=== PATIENT | female | born 1960 | race Two or more races ===

== ENCOUNTER 2019-02-27 17:29 | Inpatient (IN) | payer OTHER ==
[~2019-02-27] VITALS: Ht 160 cm; Wt 113.7 kg
[2019-02-27] MEDS ORDERED: VECURONIUM BROMIDE 10 MG/VIAL IV ONE (17:32)
[2019-02-27] MEDS ORDERED: ETOMIDATE 2 MG/ML 10 ML VIAL IVP ONE ×2 (17:32→17:45)
[2019-02-27] MEDS ORDERED: PROPOFOL 1000 MG/ISO-OSM 100 ML IV PRN (17:34)
[2019-02-27] MEDS ORDERED: VECURONIUM BROMIDE 10 MG/VIAL IVP ONE (17:45)
[2019-02-27 17:51] LABS: HEMATOCRIT 27.3 % (36-46); HEMOGLOBIN 9.1 g/dL (12.0-16.0); MEAN CORPUSCULAR HEMOGLOBIN 32.2 pg (26.0-34.0); MEAN CORPUSCULAR HGB CONC 33.3 G/dL (31.0-37.0); MEAN CORPUSCULAR VOLUME 97 fL (80-100); PLATELET COUNT (AUTO) 265 K/uL (150-450); RED BLOOD CELL COUNT(AUTO) 2.83 MIL/uL (4.00-5.20); RED CELL DISTRIBUTION WIDTH 16.6 % (11.5-14.5)
[2019-02-27 17:58] LABS: CALCIUM, TOTAL 8.3 mg/dL (8.8-10.5); CREATININE 4.01 mg/dL (0.60-1.30); POTASSIUM 3.5 mmol/L (3.5-5.1)
[2019-02-27 18:03] LABS: INR 1.2 (0.9-1.1); PROTHROMBIN TIME 11.7 SEC (9.4-11.6)
[2019-02-27 18:04] LABS: ALBUMIN 2.8 g/dL (3.4-5.0); BILIRUBIN,TOTAL 1.2 mg/dL (0.1-1.0); TOTAL PROTEIN, SERUM 8.7 g/dL (6.4-8.2)
[2019-02-27] MEDS ORDERED: ASPI-556 PO (18:07)
[2019-02-27] MEDS ORDERED: METO25XL PO (18:07)
[2019-02-27] MEDS ORDERED: HYDR-2924 PO (18:07)
[2019-02-27] MEDS ORDERED: FURO80 PO (18:07)
[2019-02-27] MEDS ORDERED: INSU100I26 SQ (18:07)
[2019-02-27] MEDS ORDERED: NIFE-39 PO (18:07)
[2019-02-27] MEDS ORDERED: FERR210T PO (18:07)
[2019-02-27 18:37] LABS: BAND NEUTROPHILS % (MANUAL) 33 % (0-5); LYMPHOCYTES % (MANUAL) 6 % (22-44); MONOCYTES % (MANUAL) 2 % (2-9); SEGMENTED NEUTROPHILS % 59 % (40-70)
[2019-02-27 18:44] LABS: ABG A-A DIFF O2 398.8 mmHg (10-20.0); ABG BASE EXCESS 0.7 mmol/L (-2.0-3.0); ABG CARBOXYHEMOGLOBIN 0.3 % (0.0-1.5); ABG HCO3 24.5 mmol/L (22.0-26.0); ABG METHEMOGLOBIN 0.2 % (0.0-1.5); ABG OXYGEN CONTENT 13.7 mL/dL (15.0-23.0); ABG OXYGEN SATURATION 99.3 % (95.0-98.0); ABG OXYHEMOGLOBIN 98.8 % (94.0-100.0); ABG PCO2 66 mmHg (35-45); ABG PH 7.248 (7.35-7.450); ABG TOTAL HEMOGLOBIN 9.4 G/dL (12.0-18.0); O2 DEVICE,BLOOD GAS VENTILATOR (ROOM AIR); PO2, ARTERIAL BG 248.7 mmHg (84.0-92.0); SITE, BLOOD GAS RT RADIAL; SOURCE, BLOOD GAS ARTERIAL; TEMPERATURE, FAHRENHEIT, BG 98.6 FAHREN (96.0-98.6); VT, ABG 500 ml
[2019-02-27 18:45] LABS: PEEP,BG 5 cm H2O
[2019-02-27] MEDS ORDERED: ONDANSETRON HCL 4 MG/2 ML VIAL IVP PRN (20:30)
[2019-02-27] MEDS ORDERED: ACETAMINOPHEN 325 MG TABLET PO PRN (20:30)
[2019-02-27] MEDS ORDERED: SODIUM CHLORIDE 0.9% 250 ML IV ONE (21:19)
[2019-02-27] MEDS ORDERED: FentaNYL CITRATE PF 500 MCG in DEXTROSE 5%-WATER 90 ML IV PRN (21:45)
[2019-02-27] MEDS ORDERED: KETOROLAC TROMETHAMINE 30 MG/ML VIAL IVP ONE (22:45)
[2019-02-27 23:15] LABS: GLUCOSE,POINT OF CARE 215 MG/DL (70-110)
[2019-02-27] MEDS ORDERED: HALOPERIDOL LACTATE 5 MG/ML VIAL IVP ONE (23:15)
[2019-02-27] MEDS ORDERED: NOREPINEPHRINE 4 MG/D5%-WATER 250 ML IV PRN (23:48)
[2019-02-28] MEDS ORDERED: NOREPINEPHRINE 4 MG/D5%-WATER 250 ML IV PRN
[2019-02-28] MEDS ORDERED: HALOPERIDOL LACTATE 5 MG/ML VIAL IVP ONE (00:45)
[2019-02-28] MEDS ORDERED: SODIUM CHLORIDE 0.9% 100 ML ONE (01:23)
[2019-02-28] MEDS ORDERED: IOVERSOL 320 MG/ML 100 ML VIAL ONE (01:23)
[2019-02-28] MEDS ORDERED: 0.9% SODIUM CHLORIDE 10 ML SYRINGE IVP PRN (02:15)
[2019-02-28] MEDS ORDERED: ACETAMINOPHEN 325 MG TABLET PO PRN (02:15)
[2019-02-28] MEDS ORDERED: ONDANSETRON HCL 4 MG/2 ML VIAL IVP PRN (02:15)
[2019-02-28] MEDS ORDERED: MAGNESIUM HYDROXIDE SUSPENSION 30 ML UDCUP PO PRN (02:15)
[2019-02-28 08:18] LABS: GLUCOSE,POINT OF CARE 207 MG/DL (70-110)
[2019-02-28] MEDS: DOCUSATE SODIUM 100 MG CAPSULE PO SCH ×2 (09:08→20:53)
[2019-02-28 11:54] LABS: GLUCOSE,POINT OF CARE 175 MG/DL (70-110)
[2019-02-28 16:00] VITALS: BP 156/77
[2019-02-28] MEDS: SEVELAMER CARBONATE 800 MG TABLET PO SCH (18:23)
[2019-02-28 19:45] VITALS: BP 155/71
[2019-02-28 20:01] LABS: GLUCOMETER DEV NAME(LOC) 5N.1; GLUCOSE,POINT OF CARE 262 MG/DL (70-110)
[2019-03-01 00:19] VITALS: BP 150/73
[2019-03-01 02:21] LABS: GLUCOMETER DEV NAME(LOC) 5N.1; GLUCOSE,POINT OF CARE 181 MG/DL (70-110)
[2019-03-01 04:43] VITALS: BP 127/43
[2019-03-01 06:49] LABS: GLUCOMETER DEV NAME(LOC) 5N.1; GLUCOSE,POINT OF CARE 168 MG/DL (70-110)
[2019-03-01 07:20] VITALS: BP 118/46
[2019-03-01 07:39] LABS: CALCIUM, TOTAL 8.5 mg/dL (8.8-10.5); CREATININE 3.31 mg/dL (0.60-1.30); PHOSPHORUS 4.3 mg/dL (2.5-4.9); POTASSIUM 3.8 mmol/L (3.5-5.1)
[2019-03-01 07:57] LABS: BASOPHILS % (AUTO) 2.1 % (0.0-2.0); EOSINOPHILS % (AUTO) 4.1 % (1.0-6.0); HEMATOCRIT 22.1 % (36-46); HEMOGLOBIN 7.4 g/dL (12.0-16.0); LYMPHOCYTES # (AUTO) 0.6 K/uL (1.0-4.8); LYMPHOCYTES % (AUTO) 5.7 % (22.0-44.0); MEAN CORPUSCULAR HEMOGLOBIN 32.2 pg (26.0-34.0); MEAN CORPUSCULAR HGB CONC 33.7 G/dL (31.0-37.0); MEAN CORPUSCULAR VOLUME 96 fL (80-100); MONOCYTES % (AUTO) 10.2 % (2.0-9.0); NEUTROPHILS # (AUTO) 7.9 K/uL (1.8-7.7); NEUTROPHILS % (AUTO) 77.9 % (40.0-70.0); PLATELET COUNT (AUTO) 249 K/uL (150-450); RED BLOOD CELL COUNT(AUTO) 2.31 MIL/uL (4.00-5.20); RED CELL DISTRIBUTION WIDTH 16.4 % (11.5-14.5)
[2019-03-01] MEDS: SEVELAMER CARBONATE 800 MG TABLET PO SCH ×3 (08:03→18:59)
[2019-03-01] MEDS: DOCUSATE SODIUM 100 MG CAPSULE PO SCH ×2 (08:03→20:30)
[2019-03-01] MEDS ORDERED: EPOETIN ALFA 10,000 UNITS/ML VIAL SQ SCH (09:00)
[2019-03-01] MEDS ORDERED: [UNRECOGNIZED DRUG - REMARK] MISC SCH (09:00)
[2019-03-01 11:05] VITALS: BP 149/61
[2019-03-01] MEDS ORDERED: SODIUM CHLORIDE 0.9% 250 ML IV ONE (13:49)
[2019-03-01] MEDS: SOD FERRIC GLUC COMPLX/SUCROSE 125 MG in SODIUM CHLORIDE 0.9% 100 ML IV SCH (13:51)
[2019-03-01 15:11] VITALS: BP 150/62
[2019-03-01] MEDS ORDERED: GLIM4 PO (18:58)
[2019-03-01 19:09] LABS: GLUCOMETER DEV NAME(LOC) 5N.1; GLUCOSE,POINT OF CARE 154 MG/DL (70-110)
[2019-03-01 19:09] LABS: GLUCOMETER DEV NAME(LOC) 5N.1; GLUCOSE,POINT OF CARE 169 MG/DL (70-110)
[2019-03-01 19:09] LABS: GLUCOMETER DEV NAME(LOC) 5N.1; GLUCOSE,POINT OF CARE 248 MG/DL (70-110)
[2019-03-01 20:05] VITALS: BP 141/61
[2019-03-01] MEDS: CeFAZolin 1 GM/DEXTROSE 50 ML IV PRN (20:15)
[2019-03-01 20:35] LABS: GLUCOMETER DEV NAME(LOC) 5N.1; GLUCOSE,POINT OF CARE 238 MG/DL (70-110)
[2019-03-02 00:11] VITALS: BP 158/73
[2019-03-02 04:25] VITALS: BP 134/53
[2019-03-02 06:57] LABS: BASOPHILS % (AUTO) 0.7 % (0.0-2.0); EOSINOPHILS % (AUTO) 3.2 % (1.0-6.0); HEMATOCRIT 21.9 % (36-46); HEMOGLOBIN 7.3 g/dL (12.0-16.0); LYMPHOCYTES # (AUTO) 0.5 K/uL (1.0-4.8); LYMPHOCYTES % (AUTO) 5.2 % (22.0-44.0); MEAN CORPUSCULAR HEMOGLOBIN 32.3 pg (26.0-34.0); MEAN CORPUSCULAR HGB CONC 33.4 G/dL (31.0-37.0); MEAN CORPUSCULAR VOLUME 97 fL (80-100); MONOCYTES # (AUTO) 1.1 K/uL (0.1-1.0); MONOCYTES % (AUTO) 11.7 % (2.0-9.0); NEUTROPHILS # (AUTO) 7.7 K/uL (1.8-7.7); NEUTROPHILS % (AUTO) 79.2 % (40.0-70.0); PLATELET COUNT (AUTO) 285 K/uL (150-450); RED BLOOD CELL COUNT(AUTO) 2.27 MIL/uL (4.00-5.20); RED CELL DISTRIBUTION WIDTH 16.1 % (11.5-14.5)
[2019-03-02 07:24] LABS: CALCIUM, TOTAL 8.6 mg/dL (8.8-10.5); CREATININE 3.06 mg/dL (0.60-1.30); FREE T4 (FREE THYROXINE) 1.01 ng/dL (0.76-1.46); POTASSIUM 3.5 mmol/L (3.5-5.1); THYROID STIMULATING HORMONE 13.09 uIU/mL (0.36-3.74)
[2019-03-02 07:55] VITALS: BP 159/66
[2019-03-02] MEDS: SEVELAMER CARBONATE 800 MG TABLET PO SCH ×3 (08:44→17:43)
[2019-03-02] MEDS: DOCUSATE SODIUM 100 MG CAPSULE PO SCH ×2 (08:44→21:00)
[2019-03-02] MEDS: SOD FERRIC GLUC COMPLX/SUCROSE 125 MG in SODIUM CHLORIDE 0.9% 100 ML IV SCH (10:58)
[2019-03-02 12:34] LABS: GLUCOMETER DEV NAME(LOC) 5N.1; GLUCOSE,POINT OF CARE 185 MG/DL (70-110)
[2019-03-02 12:34] LABS: GLUCOMETER DEV NAME(LOC) 5N.1; GLUCOSE,POINT OF CARE 237 MG/DL (70-110)
[2019-03-02] MEDS ORDERED: GLUCAGON,HUMAN RECOMBINANT 1 MG VIAL IM PRN (16:00)
[2019-03-02 17:01] VITALS: BP 143/63
[2019-03-02] MEDS: INSULIN LISPRO 100 UNITS/ML SQ PRN (17:43)
[2019-03-02 18:28] LABS: GLUCOMETER DEV NAME(LOC) 5N.1; GLUCOSE,POINT OF CARE 182 MG/DL (70-110)
[2019-03-02 20:00] VITALS: BP 160/84
[2019-03-02 23:27] VITALS: BP 146/68
[2019-03-03 04:26] VITALS: BP 149/70
[2019-03-03 04:47] LABS: GLUCOMETER DEV NAME(LOC) 5N.1; GLUCOSE,POINT OF CARE 226 MG/DL (70-110)
[2019-03-03] MEDS ORDERED: LEVOTHYROXINE SODIUM 25 MCG TABLET PO SCH (06:30)
[2019-03-03 06:58] LABS: CALCIUM, TOTAL 8.8 mg/dL (8.8-10.5); CREATININE 4.21 mg/dL (0.60-1.30); POTASSIUM 3.8 mmol/L (3.5-5.1)
[2019-03-03 07:03] LABS: EOSINOPHILS % (AUTO) 3.9 % (1.0-6.0); HEMATOCRIT 22.7 % (36-46); HEMOGLOBIN 7.7 g/dL (12.0-16.0); LYMPHOCYTES # (AUTO) 0.6 K/uL (1.0-4.8); LYMPHOCYTES % (AUTO) 6.4 % (22.0-44.0); MEAN CORPUSCULAR HEMOGLOBIN 32.9 pg (26.0-34.0); MEAN CORPUSCULAR HGB CONC 34.1 G/dL (31.0-37.0); MEAN CORPUSCULAR VOLUME 97 fL (80-100); MONOCYTES % (AUTO) 9.9 % (2.0-9.0); NEUTROPHILS # (AUTO) 7.9 K/uL (1.8-7.7); NEUTROPHILS % (AUTO) 78.8 % (40.0-70.0); PLATELET COUNT (AUTO) 281 K/uL (150-450); RED BLOOD CELL COUNT(AUTO) 2.34 MIL/uL (4.00-5.20); RED CELL DISTRIBUTION WIDTH 16.6 % (11.5-14.5)
[2019-03-03 07:25] VITALS: BP 139/62
[2019-03-03 08:01] LABS: GLUCOMETER DEV NAME(LOC) 5N.1; GLUCOSE,POINT OF CARE 140 MG/DL (70-110)
[2019-03-03] MEDS: SEVELAMER CARBONATE 800 MG TABLET PO SCH ×3 (08:21→18:00)
[2019-03-03] MEDS: DOCUSATE SODIUM 100 MG CAPSULE PO SCH (08:21)
[2019-03-03] MEDS: SOD FERRIC GLUC COMPLX/SUCROSE 125 MG in SODIUM CHLORIDE 0.9% 100 ML IV SCH (10:43)
[2019-03-03] MEDS ORDERED: METOPROLOL TARTRATE 25 MG TABLET PO SCH (11:00)
[2019-03-03 11:35] VITALS: BP 143/62
[2019-03-03] MEDS: INSULIN LISPRO 100 UNITS/ML SQ PRN (11:59)
[2019-03-03] MEDS ORDERED: SODIUM CHLORIDE 0.9% 2,000 ML ONE (14:34)
[2019-03-03 15:22] LABS: GLUCOMETER DEV NAME(LOC) 5N.1; GLUCOSE,POINT OF CARE 173 MG/DL (70-110)
[2019-03-03 16:13] VITALS: BP 128/45
[2019-03-03] MEDS: CeFAZolin 1 GM/DEXTROSE 50 ML IV PRN (18:22)
[2019-03-03] MEDS ORDERED: SEVE800T17 PO (19:34)
[2019-03-03] MEDS ORDERED: LEVO25TA9 PO (19:34)
[2019-03-03] MEDS ORDERED: METO25XL PO (19:59)
[2019-03-03 20:02] VITALS: BP 159/64
[2019-03-03 23:43] LABS: GLUCOMETER DEV NAME(LOC) 5N.1; GLUCOSE,POINT OF CARE 131 MG/DL (70-110)
== END 2019-03-03 21:12 | disposition home or self-care (01) | DRG 133 ==
LOC: EMS 17:31 → ICU 19:00 → UNDOADMIN 19:00 → 5N 02-28 14:16
PROVIDERS: ADMIT Internal Medicine; ATTEND Internal Medicine
PROC: 5A1D70Z Performance of Urinary Filtration, Intermittent, Less than 6 Hours Per Day (ICD-10-PCS; principal; 2019-02-28)
PROC: 5A1935Z Respiratory Ventilation, Less than 24 Consecutive Hours (ICD-10-PCS; 2019-02-28)
PROC: 0BH17EZ Insertion of Endotracheal Airway into Trachea, Via Natural or Artificial Opening (ICD-10-PCS; 2019-02-28)
PROC: 5A1D70Z Performance of Urinary Filtration, Intermittent, Less than 6 Hours Per Day (ICD-10-PCS; 2019-03-01)
PROC: 5A1D70Z Performance of Urinary Filtration, Intermittent, Less than 6 Hours Per Day (ICD-10-PCS; 2019-03-02)
PROC: 5A1D70Z Performance of Urinary Filtration, Intermittent, Less than 6 Hours Per Day (ICD-10-PCS; 2019-03-03)
DX: J96.90 Respiratory failure, unspecified, unspecified whether with hypoxia or hypercapnia (principal); I46.2 Cardiac arrest due to underlying cardiac condition; E43 Unspecified severe protein-calorie malnutrition; I13.2 Hypertensive heart and chronic kidney disease with heart failure and with stage 5 chronic kidney disease, or end stage renal disease; E11.22 Type 2 diabetes mellitus with diabetic chronic kidney disease; I31.3 Pericardial effusion (noninflammatory); N18.6 End stage renal disease; E11.319 Type 2 diabetes mellitus with unspecified diabetic retinopathy without macular edema; I50.43 Acute on chronic combined systolic (congestive) and diastolic (congestive) heart failure; E11.65 Type 2 diabetes mellitus with hyperglycemia; D64.9 Anemia, unspecified; E87.5 Hyperkalemia; E66.9 Obesity, unspecified; E78.5 Hyperlipidemia, unspecified; E11.610 Type 2 diabetes mellitus with diabetic neuropathic arthropathy; I42.9 Cardiomyopathy, unspecified; E21.3 Hyperparathyroidism, unspecified; Z99.2 Dependence on renal dialysis; Z68.41 Body mass index [BMI] 40.0-44.9, adult; Z82.49 Family history of ischemic heart disease and other diseases of the circulatory system; Z83.3 Family history of diabetes mellitus
CPT/HCPCS: 36600; 70450; 71275; 74176; 82270; 82805; 84100; 84439; 84443; 87340; 93005; 93306; 94002; 94660; 97116; 97162; 99291; 99292; J0690; J0885; J1630; J1885; J2704; J2916; J3010; J3490; J7030; J7050; J7060